=== PATIENT | male | born 1960 | race African-American/Black ===

== ENCOUNTER 2016-08-08 16:31 | Emergency (ER) | payer MEDICAID, OTHER ==
[~2016-08-08] VITALS: Ht 182.9 cm; Wt 94.0 kg
[2016-08-08] MEDS ORDERED: KETOROLAC 60MG/2ML VIAL IM ONE ×2 (20:45→21:30)
[2016-08-09] MEDS ORDERED: HYDROCODONE/ACETAMINOPHEN 5/325MG TABLET PO ONE
[2016-08-09 00:04] VITALS: BP 130/85
== END 2016-08-09 00:06 | disposition home or self-care (01) ==
LOC: ER 20:53
DX: M25.572 Pain in left ankle and joints of left foot (principal); F17.200 Nicotine dependence, unspecified, uncomplicated; Z88.0 Allergy status to penicillin
CPT/HCPCS: 73610; 73630; 96372; 99284; J1885